=== PATIENT | male | born 1970 | race Caucasian/White ===

== ENCOUNTER 2019-05-03 14:49 | Inpatient (IN) | payer OTHER ==
[2019-05-03 15:56] VITALS: BMI 26.9
--- NOTE | 2019-05-03 17:54 | HP ---
CIWA Score Nausea/Vomitin-Mild Nausea/No Vomiting Muscle Tremors: 4-Moderate,w/Arms Extend Anxiety: 4-Mod. Anxious/Guarded Agitation: 1-Slight > Activity Paroxysmal Sweats: No Perspiration Orientation: 3-Disoriented Date>2 days Tacttile Disturbances: 0-None Auditory Disturbances: 0-None Visual Disturbances: 2-Mild Sensitivity Headache: 0-None Present CIWA-Ar Total Score: 15 - Admission Criteria OASAS Guidelines: Admission for Medically Managed Detox: Requires at least one of the followin. CIWA greater than 12 2. Seizures within the past 24 hours 3. Delirium tremens within the past 24 hours 4. Hallucinations within the past 24 hours 5. Acute intervention needed for co occurring medical disorder 6. Acute intervention needed for co occurring psychiatric disorder 7. Severe withdrawal that cannot be handled at a lower level of care (continued vomiting, continued diarrhea, abnormal vital signs) requiring intravenous medication and/or fluids 8. Patient presents the following: CIWA greater than 12, Acute intervention needed for co-occurring med or psych disorder Admission Criteria Met: Admission criteria met Admission ROS [facility] Chief Complaint: C/O WITHDRAWAL SX'S. SEEKING DETOX Allergies/Adverse Reactions: Allergies Allergy/AdvReac Type Severity Reaction Status Date / Time No Known Allergies Allergy Verified 05/03/19 15:50 History of Present Illness: 48 Y.O. MALE WITH ALCOHOLISM HERE FOR DETOX. CLIENT IS REFERRED BY [facility] AFTER PRESENTING THERE WITH ALCOHOL INTOXICATION. THIS IS HIS FIRST ADMISSION HERE. PRESENTS NOW WITH WITHDRAWAL SX'S. + CIWA, +EYE SHINGLES [employer], REPORTS DRINKING DAILY. LAST DRINK THIS MORNING. +HX/O SEIZURES, BLACKOUTS. LAST SZ 5 YEARS AGO. REPORTS LONGEST CLEAN TIME 2 YEARS. RELPASING 1 YEAR AGO. MOST RECENT CLEAN TIME 5 MONTHS RELAPSING 3 WEEKS AGO. LIVES WITH FAMILY, EMPLOYED, DENIES LEGALS. Exam Limitations: Intoxication (BUT CLINCALLY STABLE) - Ebola screening Have you traveled outside of the country in the last 21 days: No (N) Have you had contact with anyone from an Ebola affected area: No Do you have a fever: No - Review of Systems Constitutional: Chills, Loss of Appetite, Night Sweats EENT: reports: No Symptoms Reported Respiratory: reports: No Symptoms reported Cardiac: reports: No Symptoms Reported GI: reports: Nausea, Poor Appetite, Poor Fluid Intake : reports: No Symptoms Reported Musculoskeletal: reports: Joint Pain Integumentary: reports: No Symptoms Reported Neuro: reports: Seizure, Tremors, Unsteady Gait (DUE TO INTOXICATION) Endocrine: reports: No Symptoms Reported Hematology: reports: No Symptoms Reported Psychiatric: reports: Anxious, Depressed (DENIES SI) Other Systems: Reviewed and Negative Patient History - Patient Medical History Hx Anemia: No Hx Asthma: No Hx Chronic Obstructive Pulmonary Disease (COPD): No Hx Cancer: No Hx Cardiac Disorders: No Hx Congestive Heart Failure: No Hx Hypertension: No Hx Hypercholesterolemia: No Hx Pacemaker: No HX Cerebrovascular Accident: No Hx Seizures: Yes (LAST BEING 5 YEARS AGO) Hx Dementia: No Hx Diabetes: No Hx Gastrointestinal Disorders: No Hx Liver Disease: No Hx Genitourinary Disorders: No Hx Sexually Transmitted Disorders: No Hx Renal Disease (ESRD): No Hx Thyroid Disease: No Hx Human Immunodeficiency Virus (HIV): No Hx Hepatitis C: No Hx Depression: Yes Hx Suicide Attempt: No Hx Bipolar Disorder: No Hx Schizophrenia: No Other Medical History: DENIES - Patient Surgical History Past Surgical History: Yes Hx Orthopedic Surgery: Yes (LEFT WRIST) Hx Hysterectomy: No Anesthesia Reaction: No - PPD History Previous Implant?: No Documented Results: Negative w/o proof Implanted On Prior [facility] Admission?: No PPD to be Administered?: Yes - Smoking Cessation Smoking history: Former smoker Have you smoked in the past 12 months: No Initiated information on smoking cessation: No - Substance & Tx. History Hx Alcohol Use: Yes Hx Substance Use: Yes Substance Use Type: Alcohol Hx Substance Use Treatment: Yes ([facility]) - Substances abused Alcohol Substance route: Oral Frequency: Daily Amount used: 2-3 pints of vodka Age of first use: 12 Date of last use: 05/03/19 Family Disease History - Family Disease History Family Disease History: Respiratory: Father ( FROM HEROIN OVERDOSE) Admission Physical Exam [facility] - Vital Signs Vital Signs: Vital Signs - 24 hr 05/03/19 15:50 Temperature 97.0 F L Pulse Rate 101 H Respiratory 20 Rate Blood Pressure 128/80 - Physical General Appearance: Yes: Intoxicated (STABLE), Tremorous, Anxious HEENTM: Yes: EOMI, Normocephalic, Normal Voice, JUAREZ, Pharynx Normal Respiratory: Yes: Chest Non-Tender, Lungs Clear, Normal Breath Sounds, No Respiratory Distress, No Accessory Muscle Use Neck: Yes: No masses,lesions,Nodules, Supple, Trachea in good position Breast: Yes: Breast Exam Deferred Cardiology: Yes: Regular Rhythm, Regular Rate, S1, S2 Abdominal: Yes: Normal Bowel Sounds, Non Tender, Soft Genitourinary: Yes: Within Normal Limits Back: Yes: Normal Inspection Musculoskeletal: Yes: full range of Motion, Gait Steady Extremities: Yes: Normal Capillary Refill, Normal Range of Motion, Non-Tender, Tremors Neurological: Yes: Alert, Motor Strength 5/5, Depressed Affect (DENIES SI) Integumentary: Yes: Dry, Warm Lymphatic: Yes: Within Normal Limits - Diagnostic (1) Alcohol dependence with uncomplicated withdrawal Current Visit: Yes Status: Acute (2) Depressed affect Current Visit: Yes Status: Suspected (3) At risk for dehydration due to poor fluid intake Current Visit: Yes Status: Acute (4) Alcohol intoxication Current Visit: Yes Status: Acute Qualifiers: Complication of substance-induced condition: uncomplicated Qualified Code(s ): F10.920 - Alcohol use, unspecified with intoxication, uncomplicated (5) Risk for falls Current Visit: Yes Status: Acute Cleared for Admission [facility] - Detox or Rehab [facility] Level of Care: Medically Managed Detox Regimen/Protocol: Librium Claeared for Rehab Admission: No Breathalyzer - Breathalyzer Breathalyzer: 0.135 Vital Signs - Vital Signs Vital signs refused: No Temperature: 97 F Temperature source: Oral Pulse Rate: 101 Respiratory Rate: 20 Blood Pressure: 128/80 BP Location: Right Arm Blood Pressure position: Sitting - Height Height: 5 ft 9 in - Weight Weight: 82.554 kg Weight measurement method: Standing scale - BMI Body Mass Index (BMI): 26.9 - Bowel Function Bowel Movement: No Urine Drug Screen - Control Is test valid?: No - Results Drug screen NEGATIVE: No Urine drug screen results: BZO-Benzodiazepines Inpatient Rehab Admission - Rehab Decision to Admit Inpatient rehab admission?: No
[2019-05-03] MEDS ORDERED: MAGNESIUM CITRATE 300 ML BOTTLE PO PRN (18:10)
[2019-05-03] MEDS ORDERED: ONDANSETRON *ODT* 4 MG TABLET SL PRN (18:10)
[2019-05-03] MEDS ORDERED: MAG HYDROX/AL HYDROX/SIMETH 30 ML UNIT-DOSE CUP PO PRN (18:10)
[2019-05-03] MEDS ORDERED: MENTHOL/PHENOL 1 EACH UD MM PRN (18:10)
[2019-05-03] MEDS ORDERED: guaiFENesin 200 MG/10 ML 10 ML UNIT-DOSE CUPS PO PRN (18:10)
[2019-05-03] MEDS ORDERED: MAGNESIUM HYDROX 2400MG/30ML ORAL SUSPENSION 30 ML CUP PO PRN (18:10)
[2019-05-03] MEDS ORDERED: ACETAMINOPHEN 325 MG TABLET (FP) PO PRN ×2 (18:10)
[2019-05-03] MEDS ORDERED: P-EPHED 60MG/TRIPROLIDI 2.5MG TABLET PO PRN (18:10)
[2019-05-03] MEDS: chlordiazePOXIDE HCL 25 MG CAPSULE PO PRN (19:16)
[2019-05-03] MEDS: THIAMINE HCL 100 MG TABLET (FP) PO SCH (22:51)
[2019-05-03] MEDS: chlordiazePOXIDE HCL 25 MG CAPSULE PO SCH (22:52)
[2019-05-04] MEDS: chlordiazePOXIDE HCL 25 MG CAPSULE PO SCH ×4 (05:58→22:29)
[2019-05-04] MEDS: chlordiazePOXIDE HCL 25 MG CAPSULE PO PRN ×2 (07:31→12:50)
[2019-05-04] MEDS: PRENATAL VITAMINS W/ FOLIC ACID TABLET (FP) PO SCH (10:24)
[2019-05-04 10:53] LABS: HEMATOCRIT 40.1 % (35.4-49); HEMOGLOBIN 13.5 GM/dL (11.7-16.9); MCHC 33.6 g/dl (32.0-35.9); MEAN CELL VOLUME 83.3 fl (80-96); MEAN PLT VOLUME 9.6 fl (7.5-11.1); RBC 4.81 M/mm3 (4.00-5.60); RDW 15.6 % (11.9-15.9)
[2019-05-04 11:02] LABS: PLATELET COUNT 158 K/MM3 (134-434)
[2019-05-04 11:13] LABS: ALBUMIN 3.9 g/dl (3.4-5.0); BILIRUBIN,TOTAL 0.5 mg/dL (0.2-1); BLOOD UREA NITROGEN 20.1 mg/dL (7-18); CALCIUM 8.8 mg/dL (8.5-10.1); POTASSIUM 3.8 mmol/L (3.5-5.1); TOT PROT 7.2 g/dl (6.4-8.2)
--- NOTE | 2019-05-04 12:02 | CONSULT ---
[facility] Psychiatric Consult - Data Date of interview: 05/04/19 Admission source: [facility] Identifying data: First admission to [facility] for this 48 y/o male self-referred for detoxification (alcohol). Seen on [address]. Patient is single, a father of one, domiciled and currently employed. Substance Abuse History: Confirmed by patient in this interview. Details in current [facility] report as follows : Smoking history: Former smoker. Have you smoked in the past 12 months: No. Initiated information on smoking cessation: No. Substance & Tx. History. Hx Alcohol Use: Yes. Hx Substance Use: Yes. Substance Use Type: Alcohol. Hx Substance Use Treatment: Yes ([facility]). - Substances abused. Alcohol. Substance route: Oral. Frequency: Daily. Amount used: 2-3 pints of vodka. Age of first use: 12. Date of last use: 05/03 Medical History: Medical profile is remarkable for withdrawal-related seizures and orthosurgery for injury to left wrist. Psychiatric History: Patient endorses one psychiatric hospitalization, in 2018, at the [facility] (suicidal ideation). Got diagnosed with MDD and treated with citalopram 40 mg/day. Patient admits to sub-optimal adherence to his medication. Mr Coto sees a psychiatrist, Dr Baron, for medication management at the [facility] in [facility]. No reported history of suicide attempts. Physical/Sexual Abuse/Trauma History: Patient denies history of abuse. Additional Comment: Urine drug screen results: BZO-Benzodiazepines. Noted. Mental Status Exam - Mental Status Exam Alert and Oriented to: Time, Place, Person Cognitive Function: Good Patient Appearance: Well Groomed Mood: Nervous, Anxious, Hopeful Affect: Appropriate, Mood Congruent Patient Behavior: Fatigued, Appropriate, Cooperative Speech Pattern: Clear, Appropriate Voice Loudness: Normal Thought Process: Intact, Goal Oriented Thought Disorder: Not Present Hallucinations: Denies Suicidal Ideation: Denies Homicidal Ideation: Denies Insight/Judgement: Fair Sleep: Fair Appetite: Good Muscle strength/Tone: Normal Gait/Station: Normal Psychiatric Findings - Problem List ([place] 1, 2,3) (1) Alcohol dependence with uncomplicated withdrawal Current Visit: Yes Status: Acute (2) Depressive disorder Current Visit: Yes Status: Chronic (3) Insomnia Current Visit: Yes Status: Chronic (4) Non-compliance Current Visit: Yes Status: Chronic - Initial Treatment Plan Initial Treatment Plan: Psychoeducation. Sleep hygiene. Support. Detoxification. AA meetings. Motivational counseling. Relapse prevention discussed (patient reports prior trial of vivitrol; stopped medication due to adverse effects). Groups. Resumed citalopram 20 mg po daily. Side effects/ benefits discussed with patient. Mr Regalado gave his consent (verbal) for this plan of care. Observation.
[2019-05-04] MEDS: METHOCARBAMOL 500 MG TABLET PO PRN (12:51)
[2019-05-04] MEDS ORDERED: cloNIDine HCL 0.1 MG TABLET PO ONE (15:00)
--- NOTE | 2019-05-04 15:05 | PN ---
S CIWA - CIWA Score Nausea/Vomitin (Upset Stomach.) Muscle Tremors: 6 Anxiety: 3 Agitation: 1-Slight > Activity Paroxysmal Sweats: 3 Orientation: 0-Oriented Tacttile Disturbances: 0-None Auditory Disturbances: 0-None Visual Disturbances: 0-None Headache: 2-Mild CIWA-Ar Total Score: 17 BHS Progress Note (SOAP) Subjective: Anxious, H/A, Upset, "Queasy" feeling in Stomach, Tremors (Severe), Poor Appetite. Objective: PATIENT A & O X 3, OBSERVED AMBULATING ON UNIT UNASSISTED. IN NO ACUTE DISTRESS. 05/04/19 15:02 Vital Signs Temperature 98.6 F 05/04/19 13:09 Pulse Rate 86 05/04/19 13:09 Respiratory Rate 18 05/04/19 13:09 Blood Pressure 126/77 05/04/19 13:09 O2 Sat by Pulse Oximetry (%) Laboratory Tests 05/04/19 05/04/19 05/04/19 08:00 08:00 08:00 WBC 3.0 L RBC 4.81 Hgb 13.5 Hct 40.1 MCV 83.3 MCH 28.0 MCHC 33.6 RDW 15.6 Plt Count 158 MPV 9.6 Sodium 139 Potassium 3.8 Chloride 103 Carbon Dioxide 30 Anion Gap 6 L BUN 20.1 H Creatinine 1.0 Est GFR (CKD-EPI)AfAm 101.98 Est GFR (CKD-EPI)NonAf 87.99 Random Glucose 120 H Calcium 8.8 Total Bilirubin 0.5 AST 58 H ALT 54 Alkaline Phosphatase 86 Total Protein 7.2 Albumin 3.9 RPR Titer Nonreactive LABS NOTED. RESULTS OF DETOX ADMISSION QFT /TB TEST PENDING. 05/04/19 15:03 Assessment: 05/04/19 15:03 WITHDRAWAL SYMPTOMS. LEUKOPENIA. ELEVATED AST LEVEL. Plan: CONTINUE DETOX. INCREASE DAILY PO WATER INTAKE. ENSURE PO FOR CALORIC SUPPLEMENTATION. CLONIDINE, 0.1 MG PO X 1 DOSE, PRN ROBAXIN PO FOR WITHDRAWAL SYMPTOMS, INCLUDING SEVERE TREMORS.
[2019-05-04] MEDS: THIAMINE HCL 100 MG TABLET (FP) PO SCH (22:29)
[2019-05-04] MEDS: MELATONIN 5 MG TABLETS PO PRN (22:29)
[2019-05-05] MEDS: chlordiazePOXIDE HCL 25 MG CAPSULE PO SCH ×4 (05:57→22:34)
[2019-05-05] MEDS: METHOCARBAMOL 500 MG TABLET PO PRN ×3 (06:49→22:35)
[2019-05-05 09:27] LABS: URINE APPEARANCE CLEAR; URINE BILIRUBIN NEGATIVE (NEGATIVE); URINE COLOR YELLOW; URINE GLUCOSE (UA) NEGATIVE (NEGATIVE); URINE KETONE NEGATIVE (NEGATIVE); URINE LEUK ESTERASE NEGATIVE (NEGATIVE); URINE NITRITE NEGATIVE (NEGATIVE); URINE PROTEIN NEGATIVE (NEGATIVE); URINE UROBILINOGEN 0.2 mg/dL (0.2-1.0)
[2019-05-05] MEDS: PRENATAL VITAMINS W/ FOLIC ACID TABLET (FP) PO SCH (10:21)
[2019-05-05] MEDS: CITALOPRAM HYDROBROMIDE 20 MG TABLET (FP) PO SCH (10:21)
--- NOTE | 2019-05-05 12:00 | PN ---
[facility] CIWA - CIWA Score Nausea/Vomitin-Mild Nausea/No Vomiting Muscle Tremors: 3 Anxiety: 3 Agitation: 3 Paroxysmal Sweats: 2 Orientation: 0-Oriented Tacttile Disturbances: 0-None Auditory Disturbances: 0-None Visual Disturbances: 0-None Headache: 0-None Present CIWA-Ar Total Score: 12 S Progress Note (SOAP) Subjective: 48 years old male admitted on 05/03/19 for acute alcohol withdrawal sx managment doing well with librium detox regimen tolerate food and fluid well ambulating on hallway social with peer patient [facility] Objective: 05/05/19 12:01 Vital Signs Temperature 96.8 F L 05/05/19 09:23 Pulse Rate 79 05/05/19 09:23 Respiratory Rate 18 05/05/19 09:23 Blood Pressure 136/87 05/05/19 09:23 O2 Sat by Pulse Oximetry (%) Laboratory Last Values WBC 3.0 K/mm3 (4.0-10.0) L 05/04/19 08:00 RBC 4.81 M/mm3 (4.00-5.60) 05/04/19 08:00 Hgb 13.5 GM/dL (11.7-16.9) 05/04/19 08:00 Hct 40.1 % (35.4-49) 05/04/19 08:00 MCV 83.3 fl (80-96) 05/04/19 08:00 MCH 28.0 pg (25.7-33.7) 05/04/19 08:00 MCHC 33.6 g/dl (32.0-35.9) 05/04/19 08:00 RDW 15.6 % (11.9-15.9) 05/04/19 08:00 Plt Count 158 K/MM3 (134-434) 05/04/19 08:00 MPV 9.6 fl (7.5-11.1) 05/04/19 08:00 Sodium 139 mmol/L (136-145) 05/04/19 08:00 Potassium 3.8 mmol/L (3.5-5.1) 05/04/19 08:00 Chloride 103 mmol/L (98-107) 05/04/19 08:00 Carbon Dioxide 30 mmol/L (21-32) 05/04/19 08:00 Anion Gap 6 MMOL/L (8-16) L 05/04/19 08:00 BUN 20.1 mg/dL (7-18) H 05/04/19 08:00 Creatinine 1.0 mg/dL (0.55-1.3) 05/04/19 08:00 Est GFR (CKD-EPI)AfAm 101.98 05/04/19 08:00 Est GFR (CKD-EPI)NonAf 87.99 05/04/19 08:00 Random Glucose 120 mg/dL (74-106) H 05/04/19 08:00 Calcium 8.8 mg/dL (8.5-10.1) 05/04/19 08:00 Total Bilirubin 0.5 mg/dL (0.2-1) 05/04/19 08:00 AST 58 U/L (15-37) H 05/04/19 08:00 ALT 54 U/L (13-61) 05/04/19 08:00 Alkaline Phosphatase 86 U/L (45-117) 05/04/19 08:00 Total Protein 7.2 g/dl (6.4-8.2) 05/04/19 08:00 Albumin 3.9 g/dl (3.4-5.0) 05/04/19 08:00 Urine Color Yellow 05/04/19 22:54 Urine Appearance Clear 05/04/19 22:54 Urine pH 6.0 (5.0-8.0) 05/04/19 22:54 Ur Specific [place] 1.015 (1.010-1.035) 05/04/19 22:54 Urine Protein Negative (NEGATIVE) 05/04/19 22:54 Urine Glucose (UA) Negative (NEGATIVE) 05/04/19 22:54 Urine Ketones Negative (NEGATIVE) 05/04/19 22:54 Urine Blood Negative (NEGATIVE) 05/04/19 22:54 Urine Nitrite Negative (NEGATIVE) 05/04/19 22:54 Urine Bilirubin Negative (NEGATIVE) 05/04/19 22:54 Urine Urobilinogen 0.2 mg/dL (0.2-1.0) 05/04/19 22:54 Ur Leukocyte Esterase Negative (NEGATIVE) 05/04/19 22:54 RPR Titer Nonreactive (NONREACTIVE) 05/04/19 08:00 lab noted 05/05/19 12:03 fasting glucose Assessment: 05/05/19 12:03 alcohol withdrawal sx Plan: continue librium detox regimen
[2019-05-05] MEDS: chlordiazePOXIDE HCL 25 MG CAPSULE PO PRN (13:12)
[2019-05-05] MEDS: IBUPROFEN 400 MG TABLET (FP) PO PRN (17:10)
[2019-05-05] MEDS: BISMUTH SUBSALICYLATE 524 MG/30 ML UD PO PRN ×2 (18:48→20:05)
[2019-05-05] MEDS: THIAMINE HCL 100 MG TABLET (FP) PO SCH (22:34)
[2019-05-05] MEDS: MELATONIN 5 MG TABLETS PO PRN (22:35)
[2019-05-06] MEDS: chlordiazePOXIDE HCL 10 MG CAPSULE PO PRN ×2 (01:51→09:01)
[2019-05-06] MEDS: BISMUTH SUBSALICYLATE 524 MG/30 ML UD PO PRN ×2 (01:52→10:36)
[2019-05-06] MEDS: chlordiazePOXIDE HCL 10 MG CAPSULE PO SCH ×4 (05:14→22:01)
[2019-05-06] MEDS: PRENATAL VITAMINS W/ FOLIC ACID TABLET (FP) PO SCH (10:33)
[2019-05-06] MEDS: CITALOPRAM HYDROBROMIDE 20 MG TABLET (FP) PO SCH (10:33)
[2019-05-06] MEDS: METHOCARBAMOL 500 MG TABLET PO PRN ×2 (10:34→17:42)
--- NOTE | 2019-05-06 13:02 | EKG ---
Test Reason : Blood Pressure : / mmHG Vent. Rate : 086 BPM Atrial Rate : 086 BPM P-R Int : 164 ms QRS Dur : 090 ms QT Int : 380 ms P-R-T Axes : 052 023 017 degrees QTc Int : 454 ms NORMAL SINUS RHYTHM WITH SINUS ARRHYTHMIA NORMAL ECG NO PREVIOUS ECGS AVAILABLE Confirmed by OSVALDO SUTTON, ZENAIDA ([id number]) on 05/06/2019 1:02:16 PM Referred By: PATRICK Confirmed By:ZENAIDA RILEY MD
--- NOTE | 2019-05-06 13:38 | PN ---
S CIWA - CIWA Score Nausea/Vomitin-Mild Nausea/No Vomiting Muscle Tremors: 2 Anxiety: 1-Mildly Anxious Agitation: 1-Slight > Activity Paroxysmal Sweats: 1-Minimal Palms Moist Orientation: 0-Oriented Tacttile Disturbances: 0-None Auditory Disturbances: 0-None Visual Disturbances: 0-None Headache: 1-Very Mild CIWA-Ar Total Score: 7 BHS Progress Note (SOAP) Subjective: pt here for alcohol detox, says he has some stomach upset. Wants to go back to work, cannot go go for rehab services. O: Vital Signs - 24 hr 05/05/19 05/05/19 05/05/19 13:56 17:40 21:44 Temperature 97.1 F L 98.0 F 98.4 F Pulse Rate 73 71 72 Respiratory 18 18 16 Rate Blood Pressure 138/87 123/78 134/86 05/06/19 05/06/19 05/06/19 00:30 06:17 07:38 Temperature 97.2 F L 97 F L Pulse Rate 69 101 H Respiratory 18 18 20 Rate Blood Pressure 126/87 128/80 05/06/19 09:23 Temperature 97.8 F Pulse Rate 83 Respiratory 18 Rate Blood Pressure 131/78 Laboratory Tests 05/04/19 05/04/19 05/04/19 08:00 08:00 08:00 WBC 3.0 L RBC 4.81 Hgb 13.5 Hct 40.1 MCV 83.3 MCH 28.0 MCHC 33.6 RDW 15.6 Plt Count 158 MPV 9.6 Sodium 139 Potassium 3.8 Chloride 103 Carbon Dioxide 30 Anion Gap 6 L BUN 20.1 H Creatinine 1.0 Est GFR (CKD-EPI)AfAm 101.98 Est GFR (CKD-EPI)NonAf 87.99 Random Glucose 120 H Calcium 8.8 Total Bilirubin 0.5 AST 58 H ALT 54 Alkaline Phosphatase 86 Total Protein 7.2 Albumin 3.9 Urine Color Urine Appearance Urine pH Ur Specific [place] Urine Protein Urine Glucose (UA) Urine Ketones Urine Blood Urine Nitrite Urine Bilirubin Urine Urobilinogen Ur Leukocyte Esterase RPR Titer Nonreactive 05/04/19 22:54 WBC RBC Hgb Hct MCV MCH MCHC RDW Plt Count MPV Sodium Potassium Chloride Carbon Dioxide Anion Gap BUN Creatinine Est GFR (CKD-EPI)AfAm Est GFR (CKD-EPI)NonAf Random Glucose Calcium Total Bilirubin AST ALT Alkaline Phosphatase Total Protein Albumin Urine Color Yellow Urine Appearance Clear Urine pH 6.0 Ur Specific [place] 1.015 Urine Protein Negative Urine Glucose (UA) Negative Urine Ketones Negative Urine Blood Negative Urine Nitrite Negative Urine Bilirubin Negative Urine Urobilinogen 0.2 Ur Leukocyte Esterase Negative RPR Titer labs WNL VS WNL a/p Continue alcohol detox protocol- d/w pt residential mangament with AA meetings /good nutrition/diet/exercise.
[2019-05-06] MEDS: hydrOXYzine PAMOATE 25 MG CAPSULE (FP) PO PRN (19:07)
[2019-05-06] MEDS: THIAMINE HCL 100 MG TABLET (FP) PO SCH (22:01)
[2019-05-07] MEDS: chlordiazePOXIDE HCL 10 MG CAPSULE PO SCH ×2 (05:24→16:54)
[2019-05-07] MEDS: BISMUTH SUBSALICYLATE 524 MG/30 ML UD PO PRN ×3 (07:29→20:32)
[2019-05-07] MEDS: PRENATAL VITAMINS W/ FOLIC ACID TABLET (FP) PO SCH (10:22)
[2019-05-07] MEDS: METHOCARBAMOL 500 MG TABLET PO PRN ×3 (10:22→21:17)
[2019-05-07] MEDS: CITALOPRAM HYDROBROMIDE 20 MG TABLET (FP) PO SCH (10:22)
[2019-05-07] MEDS: hydrOXYzine PAMOATE 25 MG CAPSULE (FP) PO PRN ×2 (10:23→21:16)
--- NOTE | 2019-05-07 13:23 | PN ---
[facility] CIWA - CIWA Score Nausea/Vomitin Muscle Tremors: 2 Anxiety: 2 Agitation: 2 Paroxysmal Sweats: 1-Minimal Palms Moist Orientation: 0-Oriented Tacttile Disturbances: 0-None Auditory Disturbances: 0-None Visual Disturbances: 0-None Headache: 1-Very Mild CIWA-Ar Total Score: 10 S Progress Note (SOAP) Subjective: alert,irritable,interrupted sleep Objective: 05/07/19 13:22 Vital Signs Temperature 97.2 F L 05/07/19 13:06 Pulse Rate 71 05/07/19 13:06 Respiratory Rate 18 05/07/19 13:06 Blood Pressure 147/92 05/07/19 13:06 O2 Sat by Pulse Oximetry (%) Assessment: 05/07/19 13:22 withdrawal symptom Plan: continue detox librium regimen,discharge in am
[2019-05-07] MEDS: IBUPROFEN 400 MG TABLET (FP) PO PRN (21:15)
[2019-05-07] MEDS: THIAMINE HCL 100 MG TABLET (FP) PO SCH (21:17)
[2019-05-08] MEDS ORDERED: chlordiazePOXIDE HCL 10 MG CAPSULE PO ONE (05:00)
[2019-05-08] MEDS: BISMUTH SUBSALICYLATE 524 MG/30 ML UD PO PRN ×2 (05:54→09:00)
[2019-05-08 06:20] VITALS: BP 116/72; PULSE 78; TEMP 97.8
[2019-05-08] MEDS: PRENATAL VITAMINS W/ FOLIC ACID TABLET (FP) PO SCH (09:23)
[2019-05-08] MEDS: CITALOPRAM HYDROBROMIDE 20 MG TABLET (FP) PO SCH (09:23)
--- NOTE | 2019-05-08 13:08 | DS ---
[facility] Detox Discharge Summary Admission Date: 05/03/19 Discharge Date: 05/08/19 - History Present History: Alcohol Dependence Additional Comments: 48 years old male first patient [facility] admission for alcohol withdrawal sx management did well with libirum detox regimen no complication through out the detox stay seen by psychiatrist muriel membreno patient tolerate well patient is alert oriented x 3 speech clearly steady gait denies dizziness denies muscles spasms no nausea no vomiting no wheezing no headache - Physical Exam Results Vital Signs: Vital Signs Temperature 97.8 F 05/08/19 06:20 Pulse Rate 78 05/08/19 06:20 Respiratory Rate 18 05/08/19 06:20 Blood Pressure 116/72 05/08/19 06:20 O2 Sat by Pulse Oximetry (%) Pertinent Admission Physical Exam Findings: alcohol withdrawal sx Laboratory Last Values WBC 3.0 K/mm3 (4.0-10.0) L 05/04/19 08:00 RBC 4.81 M/mm3 (4.00-5.60) 05/04/19 08:00 Hgb 13.5 GM/dL (11.7-16.9) 05/04/19 08:00 Hct 40.1 % (35.4-49) 05/04/19 08:00 MCV 83.3 fl (80-96) 05/04/19 08:00 MCH 28.0 pg (25.7-33.7) 05/04/19 08:00 MCHC 33.6 g/dl (32.0-35.9) 05/04/19 08:00 RDW 15.6 % (11.9-15.9) 05/04/19 08:00 Plt Count 158 K/MM3 (134-434) 05/04/19 08:00 MPV 9.6 fl (7.5-11.1) 05/04/19 08:00 Sodium 139 mmol/L (136-145) 05/04/19 08:00 Potassium 3.8 mmol/L (3.5-5.1) 05/04/19 08:00 Chloride 103 mmol/L (98-107) 05/04/19 08:00 Carbon Dioxide 30 mmol/L (21-32) 05/04/19 08:00 Anion Gap 6 MMOL/L (8-16) L 05/04/19 08:00 BUN 20.1 mg/dL (7-18) H 05/04/19 08:00 Creatinine 1.0 mg/dL (0.55-1.3) 05/04/19 08:00 Est GFR (CKD-EPI)AfAm 101.98 05/04/19 08:00 Est GFR (CKD-EPI)NonAf 87.99 05/04/19 08:00 Random Glucose 120 mg/dL (74-106) H 05/04/19 08:00 Calcium 8.8 mg/dL (8.5-10.1) 05/04/19 08:00 Total Bilirubin 0.5 mg/dL (0.2-1) 05/04/19 08:00 AST 58 U/L (15-37) H 05/04/19 08:00 ALT 54 U/L (13-61) 05/04/19 08:00 Alkaline Phosphatase 86 U/L (45-117) 05/04/19 08:00 Total Protein 7.2 g/dl (6.4-8.2) 05/04/19 08:00 Albumin 3.9 g/dl (3.4-5.0) 05/04/19 08:00 Urine Color Yellow 05/04/19 22:54 Urine Appearance Clear 05/04/19 22:54 Urine pH 6.0 (5.0-8.0) 05/04/19 22:54 Ur Specific [place] 1.015 (1.010-1.035) 05/04/19 22:54 Urine Protein Negative (NEGATIVE) 05/04/19 22:54 Urine Glucose (UA) Negative (NEGATIVE) 05/04/19 22:54 Urine Ketones Negative (NEGATIVE) 05/04/19 22:54 Urine Blood Negative (NEGATIVE) 05/04/19 22:54 Urine Nitrite Negative (NEGATIVE) 05/04/19 22:54 Urine Bilirubin Negative (NEGATIVE) 05/04/19 22:54 Urine Urobilinogen 0.2 mg/dL (0.2-1.0) 05/04/19 22:54 Ur Leukocyte Esterase Negative (NEGATIVE) 05/04/19 22:54 RPR Titer Nonreactive (NONREACTIVE) 05/04/19 08:00 lab noted patient agrees to follow up with psychiatrist in the community Vital Signs - Treatment Hospital Course: Detox Protocol Followed, Detoxed Safely, Responded well, Discharged Condition Good, Rehab Referral Accepted Patient has Accepted a [facility] Referral [facility] - Medication Discharge Medications: Ambulatory Orders Citalopram Hydrobromide [Celexa -] 40 mg PO DAILY 05/03/19 - Diagnosis (1) Depression Status: Acute Qualifiers: Depression Type: unspecified Qualified Code(s): F32.9 - Major depressive disorder, single episode, unspecified (2) Alcohol dependence with uncomplicated withdrawal Status: Acute - AMA Did Patient Leave Against Medical Advice: No CIWA Score - CIWA Score Nausea/Vomitin-Mild Nausea/No Vomiting Muscle Tremors: 1-None Visible, but [place] Anxiety: 1-Mildly Anxious Agitation: 1-Slight > Activity Paroxysmal Sweats: No Perspiration Orientation: 0-Oriented Tacttile Disturbances: 0-None Auditory Disturbances: 0-None Visual Disturbances: 0-None Headache: 1-Very Mild CIWA-Ar Total Score: 5
== END 2019-05-08 09:01 | disposition home or self-care (01) | DRG 897 ==
LOC: YASAS 14:49 → Y3N 18:13
PROVIDERS: ADMIT Surgery; ATTEND Surgery
PROC: HZ2ZZZZ Detoxification Services for Substance Abuse Treatment (ICD-10-PCS; principal; 2019-05-03)
DX: F10.230 Alcohol dependence with withdrawal, uncomplicated (principal); F10.24 Alcohol dependence with alcohol-induced mood disorder; F10.220 Alcohol dependence with intoxication, uncomplicated; F32.9 Major depressive disorder, single episode, unspecified; G47.00 Insomnia, unspecified; D72.819 Decreased white blood cell count, unspecified; R74.0 Nonspecific elevation of levels of transaminase and lactic acid dehydrogenase [LDH]; Z91.89 Other specified personal risk factors, not elsewhere classified; Z91.19 Patient's noncompliance with other medical treatment and regimen; Z87.891 Personal history of nicotine dependence; Z86.69 Personal history of other diseases of the nervous system and sense organs
CPT/HCPCS: 36415; 80053; 81003; 85027; 86480; 86593; 93005; 93010; J0735